=== PATIENT | female | born 2000 | race Hispanic/Latino ===

== ENCOUNTER 2021-07-24 14:48 | Outpatient (CLI) | payer BC | END 2021-07-24 14:49 | disposition home or self-care (01) | LOC: CSHMRI 14:48 | PROVIDERS: ATTEND Orthopaedic Surgery | DX: M23.92 Unspecified internal derangement of left knee (principal); M79.89 Other specified soft tissue disorders ==

== ENCOUNTER 2022-04-02 09:45 | Emergency (ER) | payer BC, OTHER ==
[2022-04-02] MEDS ORDERED: Ketorolac Tromethamine 30 MG/ML VIAL ONE (10:35)
== END 2022-04-02 12:39 | disposition home or self-care (01) ==
LOC: CSHERS 09:45
DX: S16.1XXA Strain of muscle, fascia and tendon at neck level, initial encounter (principal); S29.012A Strain of muscle and tendon of back wall of thorax, initial encounter; W19.XXXA Unspecified fall, initial encounter
CPT/HCPCS: 72125; 72128; 72131; 96372; J1885